=== PATIENT | male | born 1995 | race Caucasian/White ===

== ENCOUNTER 2016-05-11 10:31 | Emergency (ER) | payer BC, OTHER ==
[~2016-05-11] VITALS: Ht 185.4 cm; Wt 68.3 kg
[~2016-05-11 10:31] MED LIST: PARO1TAB27 PO
[2016-05-11 10:39] VITALS: TEMP 36.7; Ht 185.4 cm; Wt 68.3 kg
[2016-05-11] MEDS ORDERED: CETI10TA84 PO (10:49)
[2016-05-11] MEDS ORDERED: ESCI1TAB10 PO (10:49)
[2016-05-11] MEDS ORDERED: AMPICILLIN/SULBACTAM SOD INJ 3,000 MG in SODIUM CHLORIDE 0.9% 100ML 100 ML IV STA (11:01)
[2016-05-11 11:36] VITALS: BP 135/99; PULSE 71; O2SAT 98
--- NOTE | 2016-05-13 07:35 | EMERGENCY ROOM VISIT NOTE ---
History First contact with patient: 10:32 Chief Complaint: OTHER COMPLAINT Stated Complaint: OTHER History of Present Illness The patient is a 20 year old male who presents to the Emergency Room with complaints of blowing his nose and a large amount of fluid running out of his nose. I know this patient personally and I transported him to the emergency department. This incident happened at approximately 945 this morning and this watery fluid has been running out of his nose nonstop since then. The patient reports bending over to pick something up when the fluid began running. He describes the fluid as yellow and watery in consistency. He is never had sinus surgery before there is a remote history of allergic rhinitis which the patient does not take any further medications for. He denies any trauma to the face or nose over the weekend. He denies any drug use or snorting any medications up his nose. Review of Systems See HPI for pertinent positives & negatives. A total of 10 systems reviewed and were otherwise negative. Past Medical/Surgical History Allergic rhinitis Social History Smoking Status: Never Smoker Alcohol Use: none Drug Use: none Marital Status: single Housing Status: lives with roommate Occupation Status: [employer] student Current/Historical Medications Scheduled Cetirizine (Zyrtec), 10 MG PO DAILY Escitalopram Oxalate (Lexapro), 20 MG PO DAILY Allergies Coded Allergies: Codeine (Verified Adverse Reaction, Intermediate, unknown, 05/11/16) Sulfa Antibiotics (Verified Adverse Reaction, Intermediate, unknown, ) Physical Exam Vital Signs Date Time Temp Pulse Resp B/P Pulse Ox O2 Delivery O2 Flow Rate FiO2 05/11/16 11:36 71 18 135/99 98 05/11/16 10:39 36.7 84 16 155/93 98 Room Air Pain Rating (0-10): 0 Physical Exam GENERAL: Patient is a healthy-appearing well-nourished male HEAD: Normocephalic atraumatic EYES: Ocular movements intact pupils equal and react to light OROPHARYNX mucous membranes are moist no exudates present no erythema or edema present NOSE: Large amount of watery yellow material running out of both nares, approx 5ccs in 2 minutes NECK: Supple no nuchal rigidity CHEST: Good equal expansion LUNGS: Clear and equal to auscultation CARDIAC: Normal S1 and S2 ABDOMEN: Soft nontender no guarding BACK: No CVA tenderness EXTREMITIES: No pain upon palpation normal muscle strength in all groups no clubbing cyanosis or edema NEURO: Patient is following commands is answering questions appropriately. Alert and oriented x3 Cranial Nerves 2-12 grossly intact Medical Decision & Procedures Medications Administered Medications (Trade) Dose Ordered Sig/Micheal Route Start Time Stop Time Status Last Admin Dose Admin Ampicillin Sodium/ Sulbactam Sodium/ Sodium Chloride (Unasyn Inj/Nss 100ml) 108 ml @ 200 mls/hr NOW STAT IV 05/11/16 11:01 05/11/16 11:33 DC 05/11/16 11:15 200 MLS/HR Medical Decision Patient was taken to the emergency department immediately placed a 1. He was able to produce a fluid sample. This was sent down to laboratory on downtime orders to have a tau glycoprotein analysis for CSF fluid. I then discussed the case with ear nose and throat who recommended that the patient be transferred to a tertiary care center especially with the amount of fluid coming out of the patient's nose. I then discussed the case with the neurosurgeon on-call as well as the emergency department physician concrete mixer operator helper at [facility] as the patient is from [place]. An IV was established here in the emergency department and the patient was started on IV Unasyn per neurosurgeon request. The patient's sister reported to the emergency department and wished to take the patient to [place]. I believe that this is reasonable. I did pack the patient's nose with tissues and a clamp. I did discuss the case with the patient's father. Both patient and family were in agreement with the treatment plan. Impression Primary Impression: CSF leak from nose Departure Information Dispostion Transfer Acute Care Facility Condition GOOD Referrals No Doctor, Assigned (PCP) Forms WORK / SCHOOL INSTRUCTIONS, HOME CARE DOCUMENTATION FORM, IMPORTANT VISIT INFORMATION Patient Instructions My [facility]
== END 2016-05-11 11:35 | disposition short-term general hospital (02) ==
LOC: C.EDB 10:32
DX: G96.0 Cerebrospinal fluid leak (principal); J30.9 Allergic rhinitis, unspecified; Z79.899 Other long term (current) drug therapy